=== PATIENT | female | born 1970 | race Caucasian/White ===

== ENCOUNTER 2020-07-29 14:08 | Emergency (ER) | payer BC ==
[~2020-07-29] VITALS: Ht 154.9 cm; Wt 68.0 kg
[~2020-07-29 14:08] MED LIST: DOXYCYCLINE HY100 MG PO; IBUPROFEN600 MG PO; KEFLEX500 MG PO; LEVOTHYROXINE125 MCG PO; NORCO 5-325 TA1 EACH PO; PRENATAL PLUS1 EAC2 PO; PREVACID15 MG PO
[2020-07-29] MEDS ORDERED: YAZ 28 TABLET1 EACH PO (14:21)
--- NOTE | 2020-07-30 05:40 | EKG ---
[facility] [address] [facility] [place], [place] [address] Signed Normal sinus rhythm Cannot rule out Anterior infarct , age undetermined Abnormal ECG No previous ECGs available Confirmed by JOSE CAGE MD ([id number] on 07/30/2020 5:39:54 AM Electronically Signed By: JOSE CAGE MD 07/30/20 0540 PATIENT NAME: JAYA HERRERA Electrocardiogram DATE OF : 74 PHYSICIAN: JOSE CAGE MD REPORT #: [id number] REPORT IS CONFIDENTIAL AND NOT TO BE RELEASED WITHOUT AUTHORIZATION
== END 2020-07-29 16:31 | disposition home or self-care (01) ==
LOC: ED 14:08
DX: G43.109 Migraine with aura, not intractable, without status migrainosus (principal); E03.9 Hypothyroidism, unspecified; Z79.899 Other long term (current) drug therapy
CPT/HCPCS: 71045; 80053; 81001; 83735; 84443; 84484; 85025; 93005; 93010; 99284-25